=== PATIENT | male | born 1960 | race African-American/Black ===

== ENCOUNTER 2020-06-24 09:51 | Emergency (ER) | payer OTHER ==
[~2020-06-24] VITALS: Ht 167.6 cm; Wt 102.2 kg
[2020-06-24 09:57] VITALS: BP 150/94
--- NOTE | 2020-06-24 10:01 | PHYS DOC ---
Adult General HPI HPI Patient is a fully vaccinated 60-year-old male who presents with right thumb foreign body. States he was handling wooden pallets 5 days ago when he noticed a splinter protruding through his right thumb. Patient has been attempting to provide self-care and is had numerous attempts trying to remove suspect splinter that entered on the ventral portion of his interphalangeal joint. Over the past 48 hours he noticed increased swelling and erythema prompting him to visit local urgent care this morning. Attempts were made to visualize suspect splinter but urgent care could not locate it and subsequently referred him to our ER for evaluation. Patient denies any fever, denies any gross motor or sensory changes of his right hand, no streaking or crepitus Review of Systems Review of Systems Fourteen body systems of review of systems have been reviewed. See HPI for pertinent positives and negative responses, other najera all other systems are negative, non-pertinent or non-contributory Physical Exam Physical Exam Constitutional: Well developed, well nourished, no acute distress, non-toxic appearance. HENT: Normocephalic, atraumatic, bilateral external ears normal, oropharynx moist, no oral exudates, nose normal. Eyes: PERRLA, EOMI, conjunctiva normal, no discharge. Neck: Normal range of motion, no tenderness, supple, no stridor. Cardiovascular: Heart rate regular, sinus rhythm, no murmurs rubs or gallops Lungs & Thorax: Bilateral breath sounds clear to auscultation Abdomen: Bowel sounds normal, soft, no tenderness, no masses, no pulsatile masses. Nonsurgical abdomen, no peritoneal signs Skin: Warm, dry, no erythema, no rash. Bilateral hands unless otherwise noted: Sensation: SILT in FF/IF dorsal, proximal (radial), SF tip (ulnar), IF volar tip (median) Motor: + Thumbs Up (radial), OK sign (median), X with 2nd 3rd fingers (ulnar) Flexion & Extension 1-5 against resistance, Wrist/finger extension off table (radial), Finger AB/AD-duction (ulnar), Thumb to pinky (median). Isolation of each digit Index F: FDS, FDP, extension intact with PROM against resistance. No pain on movement. RDN/UDN intact. 2 pt discrimination intact. CR < 2s. Soft compartment. No gross deformity. Middle F: FDS, FDP, extension intact with PROM against resistance. No pain on movement. RDN/UDN intact. 2 pt discrimination intact. CR < 2s. Soft compartment. No gross deformity Ring F: FDS, FDP, extension intact with PROM against resistance. No pain on movement. RDN/UDN intact. 2 pt discrimination intact. CR < 2s. Soft compartment. No gross deformity Short F: FDS, FDP, extension intact with PROM against resistance. No pain on movement. RDN/UDN intact. 2 pt discrimination intact. CR < 2s. Soft compartment. No gross deformity Thumb: FPL, EPL, EPB, APL intact per routine. RDN/UDN intact per routine. CR < 2s. Right thumb with gross deformity on ventral portion of distal interphalangeal joint with obvious site of inoculation with self-induced excavation evidence with wound less than 3 mm in diameter, edema present without crepitus or palpable fluid collection of subcutaneous skin, no Knievel signs, no gross observable splinter. Compartments soft. Back: No tenderness, no CVA tenderness. Extremities: No tenderness, no cyanosis, no clubbing, ROM intact, no edema. Neurologic: Alert and oriented X 3, grossly normal motor & sensory function, no focal deficits noted. Psychologic: Affect normal, judgement normal, mood normal. Current Patient Data Vital Signs Vital Signs Date Time Temp Pulse Resp B/P (MAP) Pulse Ox O2 Delivery O2 Flow Rate FiO2 06/24/20 09:57 97.9 64 16 150/94 (112) 100 Room Air EKG EKG [] Radiology/Procedures Radiology/Procedures EXAM: RIGHT HAND 3 VIEWS. HISTORY: Right thumb foreign body. COMPARISON: None. FINDINGS: No fractures are identified. There is no radiopaque foreign body. 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 It is also mild at the first and third metacarpophalangeal joints. Alignment is maintained. Joint spaces are maintained. IMPRESSION: 1. No fracture a radiopaque foreign body. Electronically signed by: Vicente Vaca MD (06/24/2020 10:47 AM) [facility] Heart Score Risk Factors: Risk Factors: DM, Current or recent (<one month) smoker, HTN, HLP, family history of CAD, obesity. Risk Scores: Risk Factors: DM, Current or recent (<one month) smoker, HTN, HLP, family history of CAD, obesity. Course & Med Decision Making Course & Med Decision Making Pertinent Labs and Imaging studies reviewed. (See chart for details) Bedside ultrasound performed by myself and no obvious fluid collection or foreign body present. No obvious splinter, other retained foreign body, abscess or any other abnormality that indicates further ER work-up and/or intervention I do have concern for secondary infection from suspect retained foreign body and so Keflex was administered while in ER and tolerated well and subsequent prescription written I advised patient this might be an acute presentation more concerning pathology and so, he should follow-up with primary care physician for consideration of outpatient referral for hand surgeon versus senior benefits specialist for repeat examination of hand as indicated Patient was advised and educated on importance of close outpatient follow-up. I advised them to call primary care physician as soon as possible to discuss following up in outpatient setting after ER departure for repeat examination and evaluation. Strict return precautions were discussed at length with good understanding by patient who is able to restate plan and concerning signs or symptoms that should prompt immediate medical attention. All questions and concerns addressed prior to ER departure Dragon Disclaimer Dragon Disclaimer This electronic medical record was generated, in whole or in part, using a voice recognition dictation system. Departure Departure: Impression: Primary Impression: Foreign body of right thumb with infection Disposition: DC HOME SELF CARE/HOMELESS Condition: STABLE Referrals: LEWIS MARRERO (PCP) Patient Instructions: Cephalexin tablets or capsules, Foreign Body Additional Instructions: As discussed, please call your primary care physician to discuss need for close outpatient follow-up for consideration of hand/wound care evaluation Please take prescribed antibiotic to completion as prescribed to prevent secondary infection caused by suspect foreign body to right thumb I discussed with you extensively concerning signs or symptoms that should prompt immediate medical attention by your primary care physician or at our ER If you have any questions or concerns please do not hesitate to call and/or represent for repeat examination It was a pleasure to take care of you today and I wish you a speedy recovery! Scripts Cephalexin (KEFLEX) 500 Mg Capsule 500 MG PO QID for cellulitis for 5 Days, #20 TAB Prov: KELLI TAYLOR DO 06/24/20 KELLI TAYLOR DO Jun 24, 2020 10:01
[2020-06-24] MEDS ORDERED: CEPHALEXIN 250 MG CAPSULE PO ONE (10:45)
[2020-06-24] MEDS ORDERED: CEPH-264 PO (10:48)
--- NOTE | 2020-06-24 10:52 | RAD ---
EXAM: RIGHT HAND 3 VIEWS. HISTORY: Right thumb foreign body. COMPARISON: None. FINDINGS: No fractures are identified. There is no radiopaque foreign body. 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 It is also mild at the first and third metacarpophalangeal joints. Alignment is maintained. Joint spaces are maintained. IMPRESSION: 1. No fracture a radiopaque foreign body. Electronically signed by: Vicente Vaca MD (06/24/2020 10:47 AM) [facility]
== END 2020-06-24 11:05 | disposition home or self-care (01) ==
LOC: ER 09:51
DX: S60.351A Superficial foreign body of right thumb, initial encounter (principal); L08.89 Other specified local infections of the skin and subcutaneous tissue; W45.8XXA Other foreign body or object entering through skin, initial encounter; Y93.89 Activity, other specified; Y92.89 Other specified places as the place of occurrence of the external cause; Y99.8 Other external cause status
CPT/HCPCS: 73130; 99284